=== PATIENT | female | born 1955 | race Caucasian/White ===

== ENCOUNTER 2016-09-12 10:20 | Inpatient (IN) ==
[2016-09-12] MEDS ORDERED: IPRATROPIUM/ALBUTEROL 3 ML AMPUL.NEB NEB ONE (10:27)
[2016-09-12] MEDS ORDERED: 0.9 % SODIUM CHLORIDE 1,000 ML IV ONE (10:41)
[2016-09-12] MEDS ORDERED: AZITHROMYCIN 500 MG in DEXTROSE 5% IN WATER 250 ML IV ONE (10:41)
[2016-09-12] MEDS ORDERED: TERBUTALINE 1 MG/ML VIAL SQ ONE (10:41)
[2016-09-12] MEDS ORDERED: methylPREDNISolone SOD SUCC 125 MG/2 ML VIAL IV ONE (10:41)
[2016-09-12] MEDS ORDERED: ALBUTEROL SULFATE 5 MG/ML NEB SOLUTION BOTTLE NEB ONE (10:43)
--- NOTE | 2016-09-12 11:02 | Emergency Department Note ---
SOB HPI - General Chief Complaint: Shortness of Breath/Dyspnea Stated Complaint: SOB Time Seen by Provider: 09/12/16 10:28 Source: patient Mode of arrival: ambulatory Limitations: no limitations - History of Present Illness 89-year-old female with shortness of breath and upper respiratory symptoms for the last 2 months. She has a appointment with the new province archivist Dr. Blankenship in October but has not seen him yet. The last couple days have been worsening severely culminating with worst symptoms at 4 AM this morning coughing up thick mucus. She has a hoarse voice. Not on home oxygen but she drops into the 80s oxygen saturation with talking. Very fatigued and unable to exert herself even minimally. Some nausea. Afebrile - Related Data Home Medications Medication Instructions Recorded Confirmed Albuterol Sulfate [Ventolin] 2 puff INH Q4HP PRN 09/12/16 09/12/16 Citalopram [Celexa] 20 mg PO DAILY 09/12/16 09/12/16 HYDROcodone/APAP 5/325MG [[place] 1 tab PO Q6HP PRN 09/12/16 09/12/16 5/325Mg] Hydrochlorothiazide [Oretic] 25 mg PO DAILY 09/12/16 09/12/16 Ipratropium/Albuterol Sulfate 1 puff INH Q4H PRN 09/12/16 09/12/16 [Combivent] Losartan [Cozaar] 100 mg PO DAILY 09/12/16 09/12/16 amLODIPine [Norvasc] 5 mg PO ONCE 09/12/16 09/12/16 Allergies Allergy/AdvReac Type Severity Reaction Status Date / Time clonazepam AdvReac Mild excessive Verified 09/12/16 14:24 mucus secretion Review of Systems All systems ED: reviewed and negative except as stated. Past Medical History - Past Medical History Attestation: Yes: The following information was validated with the patient. Medical history: Reports: COPD, hyperlipidemia, hypertension, other (Allergic rhinitis) Surgical history ED: Reports: , hysterectomy, knee replacement - Social History smoking status: Former smoker (3 years ago-smoked from age [age]) Physical Exam Some acute distress from dyspnea, wanting to sit up. Normocephalic atraumatic. Conjunctive are clear sclerae white and nonicteric. No nasal discharge or congestion. Voice is very hoarse with occasional tight productive cough. Oropharynx pink and moist. Neck is supple without lymphadenopathy or thyromegaly. Heart is regular rate and rhythm no murmurs appreciated. Lungs are clear to auscultation mostly with some subtle rales on the left. She does have some respiratory distress though with oxygen saturations decreasing into the 80s with talking. She does have pursed lip breathing as well. This even after one breathing treatment with DuoNeb. Abdomen is soft nontender nondistended. +2 radial pulse. No pedal edema. She does have some acrocyanosis. Alert oriented. No ataxia but she does have some tremulousness after the breathing treatment - General Limitations: no limitations Course Vital Signs Temperature 98.0 F 09/12/16 10:24 Pulse Rate 115 H 09/12/16 10:24 Respiratory Rate 24 H 09/12/16 10:24 Blood Pressure 128/74 09/12/16 10:24 Pulse Oximetry (%) 87 L 09/12/16 10:24 Temperature 97.2 F 09/13/16 04:00 Pulse Rate 98 H 09/13/16 07:19 Respiratory Rate 16 09/13/16 07:19 Blood Pressure 135/67 09/13/16 04:00 Pulse Oximetry (%) 90 09/13/16 07:19 Shortness of Breath/Dyspnea - Lab Data Lab results reviewed: Yes I reviewed the patient's lab results. Result diagrams: 09/13/16 03:57 09/12/16 10:55 Lab Results 09/12/16 09/12/16 09/12/16 Range/Units 10:55 10:55 10:55 WBC 18.9 H (4.5-11.0) K/mcL RBC 4.51 (4.00-5.20) M/mcL Hgb 15.4 H (12.0-15.0) g/dL Hct 46.1 (36.0-48.0) % MCV 102.2 H (80.0-100.0) fL MCH 34.2 H (26.0-34.0) pg MCHC 33.5 (31.0-36.0) g/dL RDW 13.7 (11.5-14.5) % Plt Count 203 (140-440) K/mcL MPV 9.2 (7.4-10.4) fL Gran % 85.5 H (38.0-78.0) % Lymph % (Auto) 8.0 L (15.5-49.0) % Brown % (Auto) 5.7 (1.0-12.0) % Eos % (Auto) 0.6 (0.0-7.0) % Baso % (Auto) 0.2 (0.0-2.0) % Gran # 16.1 H (1.8-8.0) K/mcL Lymph # (Auto) 1.5 (1.5-4.8) K/mcL Brown # (Auto) 1.1 H (0.1-0.9) K/mcL Eos # (Auto) 0.1 (0.0-0.7) K/mcL Baso # (Auto) 0 (0.0-0.3) K/mcL VBG Lactic Acid 1.5 (0.5-2.2) mmol/L Carbon Monoxide Screen 6.4 H (0.0-1.5) % Sodium 137 (133-145) mmol/L Potassium 3.8 (3.3-5.1) mmol/L Chloride 94 L (96-108) mmol/L Carbon Dioxide 25 (22-30) mmol/L Anion Gap 18.0 H (8-16) BUN 16 (6-20) mg/dl Creatinine 0.8 (0.6-1.1) mg/dl GFR Calculation 81 Glucose 112 H (70-105) mg/dL Calcium 9.6 (8.6-10.4) mg/dl Total Bilirubin 1.1 H (0.0-1.0) mg/dL AST 27 (0-37) U/l ALT 26 (0-40) U/l Alkaline Phosphatase 108 (39-117) U/L Troponin T (0-0.03) ng/ml Total Protein 7.6 (5.9-8.4) gm/dL Albumin 4.7 (3.2-5.2) gm/dL Globulin 2.9 (2.2-3.7) gm/dL Albumin/Globulin Ratio 1.6 (1.0-2.3) Procalcitonin (<0.10) ng/mL 09/12/16 09/12/16 Range/Units 10:55 10:55 WBC (4.5-11.0) K/mcL RBC (4.00-5.20) M/mcL Hgb (12.0-15.0) g/dL Hct (36.0-48.0) % MCV (80.0-100.0) fL MCH (26.0-34.0) pg MCHC (31.0-36.0) g/dL RDW (11.5-14.5) % Plt Count (140-440) K/mcL MPV (7.4-10.4) fL Gran % (38.0-78.0) % Lymph % (Auto) (15.5-49.0) % Brown % (Auto) (1.0-12.0) % Eos % (Auto) (0.0-7.0) % Baso % (Auto) (0.0-2.0) % Gran # (1.8-8.0) K/mcL Lymph # (Auto) (1.5-4.8) K/mcL Brown # (Auto) (0.1-0.9) K/mcL Eos # (Auto) (0.0-0.7) K/mcL Baso # (Auto) (0.0-0.3) K/mcL VBG Lactic Acid (0.5-2.2) mmol/L Carbon Monoxide Screen (0.0-1.5) % Sodium (133-145) mmol/L Potassium (3.3-5.1) mmol/L Chloride (96-108) mmol/L Carbon Dioxide (22-30) mmol/L Anion Gap (8-16) BUN (6-20) mg/dl Creatinine (0.6-1.1) mg/dl GFR Calculation Glucose (70-105) mg/dL Calcium (8.6-10.4) mg/dl Total Bilirubin (0.0-1.0) mg/dL AST (0-37) U/l ALT (0-40) U/l Alkaline Phosphatase (39-117) U/L Troponin T < 0.01 (0-0.03) ng/ml Total Protein (5.9-8.4) gm/dL Albumin (3.2-5.2) gm/dL Globulin (2.2-3.7) gm/dL Albumin/Globulin Ratio (1.0-2.3) Procalcitonin 0.05 (<0.10) ng/mL Arterial blood gas showed pH is 7.46 PCO2 43 PO2 57 - Radiology Data Radiology results reviewed: Yes I reviewed the patient's radiology results. Chest x-ray 2 views does not show any acute cardiopulmonary problem - EKG Data EKG attestation: Yes I reviewed and interpreted this EKG. EKG results narrative: Rate of 101 left axis shift no evidence of ischemia and normal sinus rhythm Disposition Pt seen by CASTING ROOM HELPER/PA only: No (MD only) Clinical Impression: Acute exacerbation of chronic obstructive airways disease Summary: Found to be having COPD exacerbation-initially given breathing treatment with DuoNeb and started on oxygen to bring saturations to normal levels. Additionally gave 10 mg albuterol heart neb over 1 hour but she continued to require oxygen Discussed case with Dr. Johnston the hospitalist who agreed to accept patient for hospital care of COPD exacerbation Disposition: Xfer Acute Care Hospital Condition: Fair
[2016-09-12 11:26] LABS: Basophils # (Auto) 0 K/mcL (0.0-0.3); Basophils % (Auto) 0.2 % (0.0-2.0); Eosinophils # (Auto) 0.1 K/mcL (0.0-0.7); Eosinophils % (Auto) 0.6 % (0.0-7.0); Granulocytes % (Auto) 85.5 % (38.0-78.0); Lymphocytes # (Auto) 1.5 K/mcL (1.5-4.8); Mean Cell Volume 102.2 fL (80.0-100.0); Mean Corpuscular HGB Conc 33.5 g/dL (31.0-36.0); Mean Corpuscular Hemoglobin 34.2 pg (26.0-34.0); Monocytes # (Auto) 1.1 K/mcL (0.1-0.9); Monocytes % (Auto) 5.7 % (1.0-12.0); Platelet Count 203 K/mcL (140-440); RBC 4.51 M/mcL (4.00-5.20); Red Cell Distribution Width 13.7 % (11.5-14.5)
--- NOTE | 2016-09-12 11:26 | XRay Report ---
CLINICAL INFORMATION: Dyspnea TECHNIQUE: Upright PA and lateral chest x-ray COMPARISON: 03/28/2014 and 05/25/2013 FINDINGS: Lungs are negative. No acute or focal pulmonary parenchymal infiltrate. No parenchymal mass. Heart size and vascularity are normal. No pulmonary edema. No pulmonary congestion. [place] and mediastinum are negative. No pleural fluid. Incidental note is made of nonacute right-sided rib fractures IMPRESSION: Negative PA and lateral chest x-ray Interpreted and Authenticated by: Maxim Cueto 09/12/16
[2016-09-12 11:51] LABS: ALT/SGPT 26 U/l (0-40); Albumin 4.7 gm/dL (3.2-5.2); Albumin/Globulin Ratio 1.6 (1.0-2.3); Alkaline Phosphatase 108 U/L (39-117); Blood Urea Nitrogen 16 mg/dl (6-20)
[2016-09-12] MEDS ORDERED: NALOXONE HCL 0.4 MG/ML VIAL IV PRN (14:18)
[2016-09-12] MEDS ORDERED: ACETAMINOPHEN 325 MG TABLET PO PRN (14:18)
[2016-09-12] MEDS ORDERED: ONDANSETRON 4 MG/2 ML VIAL IV PRN (14:18)
[2016-09-12] MEDS: 0.9 % SODIUM CHLORIDE 1,000 ML IV SCH (14:44)
[2016-09-12] MEDS: THIAMINE 100 MG TABLET PO SCH (14:45)
[2016-09-12] MEDS: methylPREDNISolone SOD SUCC 125 MG/2 ML VIAL IV SCH ×2 (14:47→21:38)
[2016-09-12] MEDS: IPRATROPIUM/ALBUTEROL 3 ML AMPUL.NEB NEB SCH ×3 (15:40→22:38)
[2016-09-12] MEDS: HYDROcodone/APAP 5/325MG TABLET PO PRN ×2 (17:30→22:11)
--- NOTE | 2016-09-12 18:03 | Internal Med History&Physical ---
Medical - H&P: HPI Patient information: Note initiated : 09/12/16 at 5:59 pm Service Date, if different from initiated Date: [] Patient: Destiny Begum a 61 y/o F admitted on 09/12/16 for Shortness of breath. Chief Complaint: [] History of present illness: Ms. Begum is a 61 year old Female with h/o copd who presents to the ER with complains of shortness of breath and cough which has been going on and off for the last 2 months. Over the last 2 days the patient's symptoms worsened considerably and therefore she presented to the ED. the patient notes that she has been having cough, going on for 2 months associated with shortness of breath. She has a history of COPD. The patient note she has tried antibiotics for same with partial relief. As time around for the last 2 days she has been having shortness of breath with exertion worse with activity better with rest, associated with chest tightness, cough, greenish phlegm, no hemoptysis, no chest pain. Patient therefore presented to the ED. She notes that in the past she was having similar symptoms at which time she was admitted to the ICU for COPD exacerbation. In the emergency room the patient underwent labs and investigations which revealed an elevated WBC count, a negative chest x-ray The patient has no urinary symptoms, the patient was given duo nebs, terbutaline,IV steroids, and azithromycin, she was hypoxic at 87% on room air. She was admitted to the hospital with a diagnosis of acute COPD exacerbation. All systems: reviewed and no additional remarkable complaints except as stated ( as per HPI) Medical - H&P: PMH Medical history: Medical History (Last Updated 09/12/16 @ 18:03 by Sander Johnston MD) Laceration (Acute) COPD (chronic obstructive pulmonary disease) (Chronic) Knee pain (Resolved 05/18/14) Hypertension, essential (Chronic) Hyperlipemia (Chronic 06/03/12) Depression (Chronic) Bronchitis, acute (Chronic) Allergic rhinitis (Chronic) Fracture of toe, closed (Resolved) Surgical history: Past Surgical History (Last Updated 07/11/16 @ 14:23 by [employer] PA) History of (Resolved) History of hysterectomy (Resolved) History of knee replacement procedure of right knee (Resolved) History of oophorectomy (Resolved) Pertinent family history: Family History Unknown Blood disorder Neurological disorder Grandmother (paternal) Malignant neoplasm of breast Father Postnecrotic cirrhosis of liver due to alcoholism Depression Malignant neoplasm of liver Osteoarthritis Mother Hyperlipidemia Essential hypertension Disorder of thyroid Medical - H&P: Meds Home Medications Medication Instructions Recorded Confirmed Type Albuterol Sulfate [Ventolin] 2 puff INH Q4HP PRN 09/12/16 09/12/16 History Citalopram [Celexa] 20 mg PO DAILY 09/12/16 09/12/16 History HYDROcodone/APAP 5/325MG [[place] 1 tab PO Q6HP PRN 09/12/16 09/12/16 History 5/325Mg] Hydrochlorothiazide [Oretic] 25 mg PO DAILY 09/12/16 09/12/16 History Ipratropium/Albuterol Sulfate 1 puff INH Q4H PRN 09/12/16 09/12/16 History [Combivent] Losartan [Cozaar] 100 mg PO DAILY 09/12/16 09/12/16 History amLODIPine [Norvasc] 5 mg PO ONCE 09/12/16 09/12/16 History Allergies Allergy/AdvReac Type Severity Reaction Status Date / Time clonazepam AdvReac Mild excessive Verified 09/12/16 14:24 mucus secretion Medical - H&P: Exam - Constitutional Vitals: Temp Pulse Resp BP Pulse Ox 97.1 F 94 H 22 127/73 91 09/12/16 16:30 09/12/16 16:30 09/12/16 16:30 09/12/16 16:30 09/12/16 16:30 Exam: GENERAL: The patient is a well-developed, well-nourished in no apparent distress. Is alert and oriented x3. VITAL SIGNS: Reviewed and as noted elsewhere. HEENT: Head is normocephalic and atraumatic. Extraocular muscles are intact. Pupils are equal, round, and reactive to light. Nares appeared normal. Mouth appears any without lesions. Mucous membranes are moist. NECK: Normal to inspection, Supple, No lymphadenopathy or thyromegaly. LUNGS: Air entry equal on both sides, prolonged exp present, myke wheezing present , NO crackles or rhonchi noted. No accessory muscles of respiration HEART: Regular rate and rhythm normal, S1 and S2 heard, no Gallop, S3 or Rub Noted, No Gross murmur heard. ABDOMEN: Soft, nontender, and nondistended. Positive bowel sounds. No hepatosplenomegaly was noted. EXTREMITIES: No cyanosis, clubbing, rash, lesions or edema. NEUROLOGIC: Cranial nerves II through XII are grossly intact. Motor and Sensory System Grossly Intact PSYCHIATRIC: Normal affect, Normal Mood. Appropriate Behavior. SKIN: No ulceration or wounds noted, No jaundice, No rash noted. Medical - H&P: Reslt - Labs CBC & Chem 7: 09/12/16 10:55 09/12/16 10:55 Medical - H&P: A/P - Narrative A/P Narrative: A/P Acute copd exacerbation: Treat with zithromax, steroids, dunebs. CXR neg for pna. monitor Acute bronchitis: treat as above, likely the source of elevated wbc count. Acute hypoxic resp failure: 87 % on RA, treat with oxygen via NC, Chr pain: Continue home meds, takes hydrococodone for chr pain. DVT prophylaxis Hep sq Diet regular Full Code. Social History - Tobacco smoking status: Former smoker - Alcohol alcohol intake frequency: 2+ drinks per day
[2016-09-12] MEDS: HEPARIN 5,000 UNIT/ML VIAL SQ SCH (21:38)
[2016-09-13] MEDS: 0.9 % SODIUM CHLORIDE 1,000 ML IV SCH (01:10)
[2016-09-13] MEDS: IPRATROPIUM/ALBUTEROL 3 ML AMPUL.NEB NEB SCH ×6 (03:14→22:47)
[2016-09-13] MEDS: methylPREDNISolone SOD SUCC 125 MG/2 ML VIAL IV SCH ×3 (06:01→21:24)
[2016-09-13 06:21] LABS: Basophils # (Auto) 0 K/mcL (0.0-0.3); Basophils % (Auto) 0 % (0.0-2.0); Eosinophils # (Auto) 0 K/mcL (0.0-0.7); Eosinophils % (Auto) 0 % (0.0-7.0); Granulocytes % (Auto) 95.8 % (38.0-78.0); Lymphocytes # (Auto) 0.5 K/mcL (1.5-4.8); Lymphocytes % (Auto) 3.1 % (15.5-49.0); Mean Cell Volume 103.1 fL (80.0-100.0); Mean Corpuscular HGB Conc 33.4 g/dL (31.0-36.0); Mean Corpuscular Hemoglobin 34.5 pg (26.0-34.0); Monocytes # (Auto) 0.2 K/mcL (0.1-0.9); Monocytes % (Auto) 1.1 % (1.0-12.0); Platelet Count 157 K/mcL (140-440); RBC 4.19 M/mcL (4.00-5.20); Red Cell Distribution Width 13.6 % (11.5-14.5)
[2016-09-13] MEDS: HYDROcodone/APAP 5/325MG TABLET PO PRN ×3 (07:04→19:12)
[2016-09-13] MEDS: MULTIVIT,THER IRON,CA,FA & MIN 1 TABLET PO SCH ×3 (09:46→13:44)
[2016-09-13] MEDS: HEPARIN 5,000 UNIT/ML VIAL SQ SCH ×2 (09:47→21:24)
[2016-09-13] MEDS: CITALOPRAM 20 MG TABLET PO SCH (09:47)
[2016-09-13] MEDS: LOSARTAN 50 MG TABLET PO SCH (09:47)
[2016-09-13] MEDS: AZITHROMYCIN 250 MG TABLET PO SCH (09:47)
[2016-09-13] MEDS: amLODIPine 5 MG TABLET PO SCH (09:47)
[2016-09-13] MEDS: HYDROCHLOROTHIAZIDE 25 MG TABLET PO SCH (09:47)
[2016-09-13] MEDS: THIAMINE 100 MG TABLET PO SCH (09:48)
[2016-09-13] MEDS ORDERED: PNEUMOCOCCAL 23-VAL P-SAC VAC 0.5 ML VIAL IM ONE (10:00)
[2016-09-13 13:07] LABS: ALT/SGPT 28 U/l (0-40); Albumin 4.7 gm/dL (3.2-5.2); Albumin/Globulin Ratio 1.6 (1.0-2.3); Alkaline Phosphatase 98 U/L (39-117); Bilirubin,Direct < 0.2 mg/dL (0.0-0.3); Blood Urea Nitrogen 18 mg/dl (6-20); Gamma Glutamyl Transpeptidase 41 U/L (5-36)
--- NOTE | 2016-09-13 14:31 | Internal Med Progress Note ---
Medical - PN: Subj Patient information: Note initiated : 09/13/16 at 2:26 pm Service Date, if different from initiated Date: [] Patient: Destiny Begum a 61 y/o F admitted on 09/12/16 for Shortness of Breath/ COPD Exacerbation. Chief Complaint: [] Interval history: Ms. Begum is a 61 year old Female with h/o copd who presents to the ER with complains of shortness of breath and cough which has been going on and off for the last 2 months. Over the last 2 days the patient's symptoms worsened considerably and therefore she presented to the ED. the patient notes that she has been having cough, going on for 2 months associated with shortness of breath. She has a history of COPD. The patient note she has tried antibiotics for same with partial relief. As time around for the last 2 days she has been having shortness of breath with exertion worse with activity better with rest, associated with chest tightness, cough, greenish phlegm, no hemoptysis, no chest pain. Patient therefore presented to the ED. She notes that in the past she was having similar symptoms at which time she was admitted to the ICU for COPD exacerbation. In the emergency room the patient underwent labs and investigations which revealed an elevated WBC count, a negative chest x-ray The patient has no urinary symptoms, the patient was given duo nebs, terbutaline,IV steroids, and azithromycin, she was hypoxic at 87% on room air. She was admitted to the hospital with a diagnosis of acute COPD exacerbation. September 13: patient seen examined, no acute overnight issues, pt notes she had some anxiety at night, with the use of steroids, so she could not sleep well, would like something to calm her down, will use trazodone 50 qhs while she is inpatient. Her shortness of breath,cough is improving. WBC trending down, procalcitonin is neg. Plan to continue present treatment. Pertinent ROS: Denies headache, dizziness Denies chest pain, palpitation Improving cough and shortness of breath Denies abdominal pain, nausea or vomiting. - Constitutional Vitals: Vital Signs Temp Pulse Resp BP Pulse Ox 98.1 F 92 H 16 170/100 92 09/13/16 08:00 09/13/16 11:14 09/13/16 11:14 09/13/16 08:00 09/13/16 08:00 Period Temp Pulse Resp BP Sys/Denney Pulse Ox Last 24 Hr 97.1 F-98.1 F 92-126 16-24 127-170/67-100 90-93 Intake and Output 09/13/16 09/13/16 09/13/16 05:59 13:59 21:59 Intake Total 1500 / 1500 1290 / 1290 Output Total 1200 / 1200 300 / 300 Balance 300 / 300 990 / 990 Weight 181 lb Patient Weight 09/14/16 05:59 Weight 181 lb Intake & Output: Intake & Output 09/13/16 09/13/16 09/13/16 05:59 13:59 21:59 Intake Total 1500 / 1500 1290 / 1290 Output Total 1200 / 1200 300 / 300 Balance 300 / 300 990 / 990 Weight 181 lb Intake: IV 1000 / 1000 890 / 890 Sodium Chloride 0.9% 1, 1000 / 1000 890 / 890 000 ml @ 100 mls/hr IV . Q10H ADRIANA Rx#:[id number] Oral 500 / 500 400 / 400 Output: Void Amount 1200 / 1200 300 / 300 Other: Meal Lunch Percent of Meal Consumed 50% Feeding Ability Assist with Tray Set Up Exam: Constitutional; Afebrile, cooperative, alert, not in distress. Eyes- No icterus, , No periorbital swelling Ears- Ext ear normal, hearing normal to conversation. Neck- Midline trachea, supple Respiratory system: Air Entry equal on both sides, No crackles , myke wheezing present, prolonged exp phase. CVS- Rate rhythm regular, S1,S2 heard, no gallop, no rub. Abdomen- Soft nontender abdomen, no organomegaly, no tenderness, no guarding or rigidity, OBSTETRICIAN GYNECOLOGIST- AOOx3, moving all extremities, no gross focal deficit noted. Medical - PN: Obj Da - Labs CBC & Chem 7: 09/13/16 03:57 09/13/16 12:08 Labs: Abnormal Lab Results 09/13/16 09/13/16 12:08 03:57 WBC 15.8 H MCV 103.1 H MCH 34.5 H Gran % 95.8 H Lymph % (Auto) 3.1 L Gran # 15.1 H Lymph # (Auto) 0.5 L Glucose 160 H Phosphorus 1.6 L GGT 41 H Meds: Medications Acetaminophen (Tylenol) 650 mg PO Q6HP PRN PRN Reason: PAIN/FEVER > 101 Hydrocodone Bitart/Acetaminophen ([place] 5/325mg) 1 tab PO Q4HP PRN PRN Reason: Pain Last Admin: 09/13/16 13:34 Dose: 1 tab Albuterol/Ipratropium (Duoneb) 3 ml NEB Q4HRT [facility] Last Admin: 09/13/16 11:12 Dose: 3 ml Amlodipine Besylate (Norvasc) 5 mg PO DAILY [facility] Last Admin: 09/13/16 09:47 Dose: 5 mg Azithromycin (Zithromax) 250 mg PO DAILY [facility] Stop: 09/16/16 09:01 Last Admin: 09/13/16 09:47 Dose: 250 mg Citalopram Hydrobromide (Celexa) 20 mg PO DAILY [facility] Last Admin: 09/13/16 09:47 Dose: 20 mg Heparin Sodium (Porcine) (Heparin) 5,000 unit SQ Q12 [facility] Last Admin: 09/13/16 09:47 Dose: 5,000 unit Hydrochlorothiazide (Oretic) 25 mg PO DAILY [facility] Last Admin: 09/13/16 09:47 Dose: 25 mg Iron Carb/Multivit/[place]/Folic Acid (Multivitamin W/Minerals) 1 tab PO DAILY [facility] Last Admin: 09/13/16 13:44 Dose: Not Given Losartan Potassium (Cozaar) 100 mg PO DAILY [facility] Last Admin: 09/13/16 09:47 Dose: 100 mg Methylprednisolone Sodium Succinate (Solu-Medrol) 62.5 mg IV Q8 [facility] Last Admin: 09/13/16 13:35 Dose: 62.5 mg Naloxone HCl (Narcan) 0.1 mg IV Q2MIN PRN PRN Reason: Opiate Reversal Ondansetron HCl (Zofran) 4 mg IV Q4HP PRN PRN Reason: Nausea And Vomiting Thiamine HCl (Vitamin B1) 100 mg PO DAILY [facility] Last Admin: 09/13/16 09:48 Dose: 100 mg Medical - PN: A/P - Time Spent With Patient Total time spent is greater than 50% in coordination of care (as documented) at patient's floor/unit and/or counseling patient: - Narrative A/P Narrative: A/P Acute copd exacerbation: Treat with zithromax, steroids, dunebs. CXR neg for pna. Pt improving, continue same. Acute bronchitis: treat as above, likely the source of elevated wbc count. CXR is neg, procalcitonin is neg, clinically improving. Acute hypoxic resp failure: 87 % on RA, treat with oxygen via NC, presently on 2 L via nasal canula Chr pain: Continue home meds, takes hydrococodone for chr pain. steroid induced anxiety: trazodone qhs. DVT prophylaxis Hep sq Diet regular Full Code.
[2016-09-13] MEDS ORDERED: POTASSIUM CHLORIDE 20 MEQ TABLET PO ONE (15:33)
[2016-09-13] MEDS: NEUTRA PHOS 1 PACKET PO SCH (21:25)
[2016-09-13] MEDS: traZODone HCL 50 MG TABLET PO SCH (21:30)
[2016-09-14] MEDS: HYDROcodone/APAP 5/325MG TABLET PO PRN ×5 (02:28→21:03)
[2016-09-14] MEDS: IPRATROPIUM/ALBUTEROL 3 ML AMPUL.NEB NEB SCH ×6 (02:28→23:36)
[2016-09-14 05:45] LABS: Basophils # (Auto) 0 K/mcL (0.0-0.3); Basophils % (Auto) 0 % (0.0-2.0); Eosinophils # (Auto) 0 K/mcL (0.0-0.7); Eosinophils % (Auto) 0 % (0.0-7.0); Granulocytes % (Auto) 94.2 % (38.0-78.0); Lymphocytes # (Auto) 0.6 K/mcL (1.5-4.8); Lymphocytes % (Auto) 3.1 % (15.5-49.0); Mean Cell Volume 103.7 fL (80.0-100.0); Mean Corpuscular HGB Conc 33.7 g/dL (31.0-36.0); Mean Corpuscular Hemoglobin 34.9 pg (26.0-34.0); Monocytes # (Auto) 0.5 K/mcL (0.1-0.9); Monocytes % (Auto) 2.7 % (1.0-12.0); Platelet Count 169 K/mcL (140-440); RBC 4.01 M/mcL (4.00-5.20); Red Cell Distribution Width 13.8 % (11.5-14.5)
[2016-09-14] MEDS: methylPREDNISolone SOD SUCC 125 MG/2 ML VIAL IV SCH ×2 (05:55→07:44)
[2016-09-14 06:16] LABS: ALT/SGPT 59 U/l (0-40); Albumin 4.3 gm/dL (3.2-5.2); Albumin/Globulin Ratio 1.7 (1.0-2.3); Alkaline Phosphatase 108 U/L (39-117); Bilirubin,Direct < 0.2 mg/dL (0.0-0.3); Blood Urea Nitrogen 21 mg/dl (6-20); Gamma Glutamyl Transpeptidase 80 U/L (5-36); Magnesium 2.2 mg/dL (1.6-2.5); Uric Acid 3.6 mg/dL (2.5-8.0)
--- NOTE | 2016-09-14 06:43 | Internal Med Progress Note ---
Medical - PN: Subj Patient information: Note initiated : 09/14/16 at 6:34 am Service Date, if different from initiated Date: [] Patient: Destiny Begum a 61 y/o F admitted on 09/12/16 for Shortness of Breath/ COPD Exacerbation. Chief Complaint: SOB Interval history: Ms. Begum is a 61 year old Female with h/o copd who presents to the ER with complains of shortness of breath and cough which has been going on and off for the last 2 months. For 2 days prior to admission, the patient's symptoms worsened considerably and therefore she presented to the ED. She has been having cough, going on for 2 months associated with shortness of breath. She has a history of COPD. She has tried antibiotics for same with partial relief. Her shortness of breath is worse with exertion and better with rest, associated with chest tightness, cough, greenish phlegm, no hemoptysis, no chest pain. Patient therefore presented to the ED. She notes that in the past she was having similar symptoms at which time she was admitted to the ICU for COPD exacerbation. In the emergency room the patient underwent labs and investigations which revealed an elevated WBC count, a negative chest x-ray The patient has no urinary symptoms, the patient was given duo nebs, terbutaline,IV steroids, and azithromycin, she was hypoxic at 87% on room air. She was admitted to the hospital with a diagnosis of acute COPD exacerbation. September 13: patient seen examined, no acute overnight issues, pt notes she had some anxiety at night, with the use of steroids, so she could not sleep well, would like something to calm her down, will use trazodone 50 qhs while she is inpatient. Her shortness of breath,cough is improving. WBC trending down, procalcitonin is neg. Plan to continue present treatment. September 14: She was doing well until early this AM when she had acute SOB while walking back from bathroom. Breathing much easier after coughing up lots of crandall sputum. She remains hoarse. She didn't try the trazodone last night because she is afraid she would be too sleepy to know if she had breathing trouble. Labs yesterday showed hypoK and hypoPhos. Both were replaced and are improved today. WBC is back up to 18. LFTs are mildly elevated. Worked with PT yesterday and mobilized well but had decreased endurance d/t SOB. She lost her IV site overnight and has a hematoma on the back of her hand. Changed to prednisone. Pertinent ROS: no fever or cp - Constitutional Vitals: Vital Signs Temp Pulse Resp BP Pulse Ox 98.1 F 88 24 H 154/74 92 09/14/16 04:00 09/14/16 04:00 09/14/16 04:00 09/14/16 04:00 09/14/16 04:00 Period Temp Pulse Resp BP Sys/Denney Pulse Ox Last 24 Hr 97.6 F-98.6 F 88-126 16-24 137-170/74-100 90-92 Intake and Output 09/13/16 09/14/16 09/14/16 21:59 05:59 13:59 Intake Total 2210 / 2210 240 / 240 Output Total 600 / 600 1100 / 1100 Balance 1610 / 1610 -860 / -860 Weight 182 lb 4.8 oz Intake & Output: Intake & Output 09/13/16 09/14/16 09/14/16 21:59 05:59 13:59 Intake Total 2210 / 2210 240 / 240 Output Total 600 / 600 1100 / 1100 Balance 1610 / 1610 -860 / -860 Weight 182 lb 4.8 oz Intake: Oral 2210 / 2210 240 / 240 Output: Void Amount 600 / 600 1100 / 1100 - Respiratory Respiratory exam: Present: normal respiratory exam, CTAB - Cardiovascular Additional comments: mild tachycardia. no murmur - GI/Abdominal GI/Abdominal exam: Present: normal bowel sounds, soft. Absent: tenderness - Neurological Exam Neurological exam: Present: alert, CN II-XII intact, oriented X3 - Psychiatric Psychiatric exam: Present: anxious - Skin Additional comments: hematoma covering most of dorsum of R hand Medical - PN: Obj Da - Labs CBC & Chem 7: 09/14/16 04:32 09/14/16 04:32 Labs: Abnormal Lab Results 09/14/16 09/14/16 09/13/16 04:32 04:32 12:08 WBC 18.0 H MCV 103.7 H MCH 34.9 H Gran % 94.2 H Lymph % (Auto) 3.1 L Gran # 17.0 H Lymph # (Auto) 0.6 L BUN 21 H Glucose 168 H 160 H Phosphorus 1.6 L GGT 80 H 41 H AST 62 H ALT 59 H Lactate Dehydrogenase 289 H 09/13/16 03:57 WBC 15.8 H MCV 103.1 H MCH 34.5 H Gran % 95.8 H Lymph % (Auto) 3.1 L Gran # 15.1 H Lymph # (Auto) 0.5 L BUN Glucose Phosphorus GGT AST ALT Lactate Dehydrogenase Meds: Medications Acetaminophen (Tylenol) 650 mg PO Q6HP PRN PRN Reason: PAIN/FEVER > 101 Hydrocodone Bitart/Acetaminophen ([place] 5/325mg) 1 tab PO Q4HP PRN PRN Reason: Pain Last Admin: 09/14/16 02:28 Dose: 1 tab Albuterol/Ipratropium (Duoneb) 3 ml NEB Q4HRT [facility] Last Admin: 09/14/16 02:28 Dose: 3 ml Amlodipine Besylate (Norvasc) 5 mg PO DAILY [facility] Last Admin: 09/13/16 09:47 Dose: 5 mg Azithromycin (Zithromax) 250 mg PO DAILY [facility] Stop: 09/16/16 09:01 Last Admin: 09/13/16 09:47 Dose: 250 mg Citalopram Hydrobromide (Celexa) 20 mg PO DAILY [facility] Last Admin: 09/13/16 09:47 Dose: 20 mg Heparin Sodium (Porcine) (Heparin) 5,000 unit SQ Q12 [facility] Last Admin: 09/13/16 21:24 Dose: 5,000 unit Hydrochlorothiazide (Oretic) 25 mg PO DAILY [facility] Last Admin: 09/13/16 09:47 Dose: 25 mg Iron Carb/Multivit/[employer] Super[employer]/Folic Acid (Multivitamin W/Minerals) 1 tab PO DAILY [facility] Last Admin: 09/13/16 13:44 Dose: Not Given Losartan Potassium (Cozaar) 100 mg PO DAILY [facility] Last Admin: 09/13/16 09:47 Dose: 100 mg Methylprednisolone Sodium Succinate (Solu-Medrol) 62.5 mg IV Q8 [facility] Last Admin: 09/13/16 21:24 Dose: 62.5 mg Naloxone HCl (Narcan) 0.1 mg IV Q2MIN PRN PRN Reason: Opiate Reversal Ondansetron HCl (Zofran) 4 mg IV Q4HP PRN PRN Reason: Nausea And Vomiting Potassium/Phosphorus/Sodium (Neutra Phos) 1 packet PO TID [facility] Last Admin: 09/13/16 21:25 Dose: 1 packet Thiamine HCl (Vitamin B1) 100 mg PO DAILY [facility] Last Admin: 09/13/16 09:48 Dose: 100 mg Trazodone HCl (Desyrel) 50 mg PO HS [facility] Last Admin: 09/13/16 21:30 Dose: Not Given Medical - PN: A/P - Time Spent With Patient Total time spent is greater than 50% in coordination of care (as documented) at patient's floor/unit and/or counseling patient: Greater than 35 minutes - Narrative A/P Narrative: A/P Acute copd exacerbation: Treat with zithromax, steroids, dunebs. CXR neg for pna. Pt improving, continue same. Increasing WBC may reflect demargination. If worsens, consider CXR tomorrow. She has no bronchospasm on exam and has no IV site; will change to high-dose prednisone and taper as able. Acute bronchitis: treat as above, likely the source of elevated wbc count. CXR is neg, procalcitonin is neg, clinically improving. Acute hypoxic resp failure: 87 % on RA, treat with oxygen via NC, presently on 2 L via nasal canula. She has a concentrator at home and feels comfortable if she had to DC on temporary O2 supplementation. Chronic pain: Continue home meds, takes hydrocodone for chr pain. steroid induced anxiety: Will keep trazodone qhs available. hypokalemia--likely 2/2 hctz. Replaced. Will monitor hypophosphatemia--possibly r/t diuretic use and hypoK. On po replacement. cont to monitor DVT prophylaxis Hep sq Diet regular Full Code. ADOD: Change to inpatient today. If improving tomorrow, consider DC home +/- home oxygen.
[2016-09-14] MEDS: amLODIPine 5 MG TABLET PO SCH (09:10)
[2016-09-14] MEDS: CITALOPRAM 20 MG TABLET PO SCH (09:10)
[2016-09-14] MEDS: MULTIVIT,THER IRON,CA,FA & MIN 1 TABLET PO SCH (09:10)
[2016-09-14] MEDS: THIAMINE 100 MG TABLET PO SCH (09:10)
[2016-09-14] MEDS: AZITHROMYCIN 250 MG TABLET PO SCH (09:10)
[2016-09-14] MEDS: HYDROCHLOROTHIAZIDE 25 MG TABLET PO SCH (09:10)
[2016-09-14] MEDS: NEUTRA PHOS 1 PACKET PO SCH ×3 (09:10→21:02)
[2016-09-14] MEDS: LOSARTAN 50 MG TABLET PO SCH (09:10)
[2016-09-14] MEDS: HEPARIN 5,000 UNIT/ML VIAL SQ SCH ×2 (09:10→21:03)
[2016-09-14] MEDS: predniSONE 20 MG TABLET PO SCH (10:36)
[2016-09-14] MEDS: traZODone HCL 50 MG TABLET PO SCH (21:04)
[2016-09-15] MEDS: HYDROcodone/APAP 5/325MG TABLET PO PRN ×5 (01:40→23:19)
[2016-09-15] MEDS: IPRATROPIUM/ALBUTEROL 3 ML AMPUL.NEB NEB SCH ×6 (03:21→23:06)
[2016-09-15] MEDS ORDERED: LORazepam 0.5 MG TABLET PO ONE (04:34)
[2016-09-15] MEDS ORDERED: LORazepam 0.5 MG TABLET ONE (04:42)
[2016-09-15 06:11] LABS: Basophils # (Auto) 0 K/mcL (0.0-0.3); Basophils % (Auto) 0.1 % (0.0-2.0); Eosinophils # (Auto) 0 K/mcL (0.0-0.7); Eosinophils % (Auto) 0 % (0.0-7.0); Granulocytes % (Auto) 80.5 % (38.0-78.0); Lymphocytes # (Auto) 1.9 K/mcL (1.5-4.8); Lymphocytes % (Auto) 11.4 % (15.5-49.0); Mean Cell Volume 104.2 fL (80.0-100.0); Mean Corpuscular HGB Conc 33.2 g/dL (31.0-36.0); Mean Corpuscular Hemoglobin 34.6 pg (26.0-34.0); Monocytes # (Auto) 1.4 K/mcL (0.1-0.9); Platelet Count 211 K/mcL (140-440); RBC 4.27 M/mcL (4.00-5.20); Red Cell Distribution Width 13.2 % (11.5-14.5)
--- NOTE | 2016-09-15 06:44 | Internal Med Progress Note ---
Medical - PN: Subj Patient information: Note initiated : 09/15/16 at 6:42 am Service Date, if different from initiated Date: [] Patient: Destiny Begum a 61 y/o F admitted on 09/14/16 for Shortness of Breath/ COPD Exacerbation. Chief Complaint: copd exacerbation Interval history: Ms. Begum is a 61 year old Female with h/o copd who presents to the ER with complains of shortness of breath and cough which has been going on and off for the last 2 months. For 2 days prior to admission, the patient's symptoms worsened considerably and therefore she presented to the ED. She has been having cough, going on for 2 months associated with shortness of breath. She has a history of COPD. She has tried antibiotics for same with partial relief. Her shortness of breath is worse with exertion and better with rest, associated with chest tightness, cough, greenish phlegm, no hemoptysis, no chest pain. Patient therefore presented to the ED. She notes that in the past she was having similar symptoms at which time she was admitted to the ICU for COPD exacerbation. In the emergency room the patient underwent labs and investigations which revealed an elevated WBC count, a negative chest x-ray The patient has no urinary symptoms, the patient was given duo nebs, terbutaline,IV steroids, and azithromycin, she was hypoxic at 87% on room air. She was admitted to the hospital with a diagnosis of acute COPD exacerbation. September 13: patient seen examined, no acute overnight issues, pt notes she had some anxiety at night, with the use of steroids, so she could not sleep well, would like something to calm her down, will use trazodone 50 qhs while she is inpatient. Her shortness of breath,cough is improving. WBC trending down, procalcitonin is neg. Plan to continue present treatment. September 14: She was doing well until early this AM when she had acute SOB while walking back from bathroom. Breathing much easier after coughing up lots of crandall sputum. She remains hoarse. She didn't try the trazodone last night because she is afraid she would be too sleepy to know if she had breathing trouble. Labs yesterday showed hypoK and hypoPhos. Both were replaced and are improved today. WBC is back up to 18. LFTs are mildly elevated. Worked with PT yesterday and mobilized well but had decreased endurance d/t SOB. She lost her IV site overnight and has a hematoma on the back of her hand. Changed to prednisone. September 15: Again had episode of a/c SOB in early AM hours while walking back from bathroom. RN called me and Ativan was given with good effect. WBC again trending down. No fevers. She was previously on Prilosec but hasn't been taking ; her nocturnal sx may be related to reflux but it has been 4-5 days since her last drink and I d/w pt whether EtOH WD may be causing sx. Desaturated to 87% on 3L today while ambulating. Breathing is much better after she coughs up phlegm but she has a difficult time since phlegm is thick. Pertinent ROS: no fevers or nausea - Constitutional Vitals: Vital Signs Temp Pulse Resp BP Pulse Ox 98.1 F 86 24 H 148/81 96 09/15/16 06:17 09/14/16 23:42 09/15/16 06:17 09/15/16 06:17 09/15/16 06:17 Period Temp Pulse Resp BP Sys/Denney Pulse Ox Last 24 Hr 97.9 F-98.5 F 86-128 12-28 148-167/68-95 91-98 Intake and Output 09/14/16 09/15/16 09/15/16 21:59 05:59 13:59 Intake Total 880 / 880 340 / 340 Output Total 250 / 250 Balance 630 / 630 340 / 340 Weight 182 lb 4.8 oz Intake & Output: Intake & Output 09/14/16 09/15/16 09/15/16 21:59 05:59 13:59 Intake Total 880 / 880 340 / 340 Output Total 250 / 250 Balance 630 / 630 340 / 340 Weight 182 lb 4.8 oz Intake: Oral 880 / 880 340 / 340 Output: Void Amount 250 / 250 Other: Meal Dinner Percent of Meal Consumed 75% # Voids 1 1 General appearance: no acute distress - ENT Additional comments: hoarse - Respiratory Respiratory exam: Present: normal respiratory exam, CTAB. Absent: accessory muscle use - Cardiovascular Cardiovascular exam: Present: tachycardia Additional comments: regular. No murmurs. - GI/Abdominal GI/Abdominal exam: Present: normal bowel sounds, soft - Extremities Exam Extremities exam: Present: neurovascular intact. Absent: pedal edema - Neurological Exam Neurological exam: Present: alert, CN II-XII intact, oriented X3 - Psychiatric Psychiatric exam: Present: anxious Medical - PN: Obj Da - Labs CBC & Chem 7: 09/15/16 04:20 09/15/16 04:20 Labs: Abnormal Lab Results 09/15/16 04:20 WBC 16.9 H MCV 104.2 H MCH 34.6 H Gran % 80.5 H Lymph % (Auto) 11.4 L Gran # 13.6 H [place] # (Auto) 1.4 H Meds: Medications Acetaminophen (Tylenol) 650 mg PO Q6HP PRN PRN Reason: PAIN/FEVER > 101 Hydrocodone Bitart/Acetaminophen ([place] 5/325mg) 1 tab PO Q4HP PRN PRN Reason: Pain Last Admin: 09/15/16 01:40 Dose: 1 tab Albuterol/Ipratropium (Duoneb) 3 ml NEB Q4HRT [facility] Last Admin: 09/15/16 03:21 Dose: 3 ml Amlodipine Besylate (Norvasc) 5 mg PO DAILY [facility] Last Admin: 09/14/16 09:10 Dose: 5 mg Azithromycin (Zithromax) 250 mg PO DAILY [facility] Stop: 09/16/16 09:01 Last Admin: 09/14/16 09:10 Dose: 250 mg Citalopram Hydrobromide (Celexa) 20 mg PO DAILY [facility] Last Admin: 09/14/16 09:10 Dose: 20 mg Heparin Sodium (Porcine) (Heparin) 5,000 unit SQ Q12 [facility] Last Admin: 09/14/16 21:03 Dose: 5,000 unit Hydrochlorothiazide (Oretic) 25 mg PO DAILY [facility] Last Admin: 09/14/16 09:10 Dose: 25 mg Iron Carb/Multivit/Glenn/Folic Acid (Multivitamin W/Minerals) 1 tab PO DAILY [facility] Last Admin: 09/14/16 09:10 Dose: 1 tab Lorazepam (Ativan) 0 mg PO ONCE ONE Stop: 09/15/16 04:35 Last Admin: 09/15/16 04:41 Dose: Not Given Losartan Potassium (Cozaar) 100 mg PO DAILY [facility] Last Admin: 09/14/16 09:10 Dose: 100 mg Naloxone HCl (Narcan) 0.1 mg IV Q2MIN PRN PRN Reason: Opiate Reversal Ondansetron HCl (Zofran) 4 mg IV Q4HP PRN PRN Reason: Nausea And Vomiting Potassium/Phosphorus/Sodium (Neutra Phos) 1 packet PO TID [facility] Last Admin: 09/14/16 21:02 Dose: 1 packet [facility]) [facility] Last Admin: 09/14/16 10:36 Dose: 60 mg Thiamine HCl (Vitamin B1) 100 mg PO DAILY [facility] Last Admin: 09/14/16 09:10 Dose: 100 mg Trazodone HCl (Desyrel) 50 mg PO [facility] Last Admin: 09/14/16 21:04 Dose: Not Given Medical - PN: A/P - Time Spent With Patient Total time spent is greater than 50% in coordination of care (as documented) at patient's floor/unit and/or counseling patient: Greater than 35 minutes - Narrative A/P Narrative: A/P Acute copd exacerbation: Treat with zithromax (to end 09/16), steroids, dunebs. CXR neg for pna. Pt improving, continue same. Leukocytosis likely 2/2 demargination as pt has had no fevers. If O2 needs increase or develops fever, consider repeating CXR. Acute bronchitis: treat as above, likely the source of elevated wbc count. CXR is neg, procalcitonin is neg, clinically improving. Add Mucinex today. Acute hypoxic resp failure: 87 % on RA, treat with oxygen via NC, presently on 3 L via nasal canula. She has a concentrator at home and feels comfortable if she had to DC on temporary O2 supplementation. Walk today for ambulatory oximetry. Nocturnal dypsnea--For 2 nights now she has had episodes in the early AM hours of acute dyspnea and anxiety. Has been off her PPI recently. Will restart in case r/t reflux. Also consider EtOH WD as it is now 4-5 days since last EtOH intake. Chronic pain: Continue home meds, takes hydrocodone for chr pain. steroid induced anxiety: Will keep trazodone qhs available. hypokalemia--likely 2/2 hctz. Replaced. Will monitor hypophosphatemia--possibly r/t diuretic use and hypoK. On po replacement. cont to monitor macrocytosis/LFT elevation: chronic EtOH use. Reports 4 glasses wine daily. Check B12, folate. PRN Ativan for anxiety above and withdrawal symptoms DVT prophylaxis Hep sq Diet regular Full Code. Status: Changed to inpatient 09/14. If improving tomorrow, consider DC home +/- home oxygen. She lives alone but may be able to get a family member to stay with her.
[2016-09-15] MEDS ORDERED: LORazepam 0.5 MG TABLET PO PRN (06:46)
[2016-09-15 06:53] LABS: ALT/SGPT 80 U/l (0-40); Albumin 4.5 gm/dL (3.2-5.2); Albumin/Globulin Ratio 1.6 (1.0-2.3); Alkaline Phosphatase 103 U/L (39-117); Bilirubin,Direct < 0.2 mg/dL (0.0-0.3); Blood Urea Nitrogen 14 mg/dl (6-20); Gamma Glutamyl Transpeptidase 93 U/L (5-36); Magnesium 2.1 mg/dL (1.6-2.5); Uric Acid 3.9 mg/dL (2.5-8.0)
[2016-09-15] MEDS ORDERED: POTASSIUM CHLORIDE 20 MEQ TABLET PO ONE ×2 (07:44→12:00)
[2016-09-15] MEDS: HEPARIN 5,000 UNIT/ML VIAL SQ SCH ×2 (09:32→20:06)
[2016-09-15] MEDS: CITALOPRAM 20 MG TABLET PO SCH (09:33)
[2016-09-15] MEDS: OMEPRAZOLE 20 MG CAPSULE PO SCH (09:33)
[2016-09-15] MEDS: amLODIPine 5 MG TABLET PO SCH (09:33)
[2016-09-15] MEDS: NEUTRA PHOS 1 PACKET PO SCH ×3 (09:33→20:06)
[2016-09-15] MEDS: guaiFENesin 600 MG TAB.SR.12H PO SCH ×2 (09:33→20:06)
[2016-09-15] MEDS: HYDROCHLOROTHIAZIDE 25 MG TABLET PO SCH (09:33)
[2016-09-15] MEDS: predniSONE 20 MG TABLET PO SCH (09:33)
[2016-09-15] MEDS: LOSARTAN 50 MG TABLET PO SCH (09:34)
[2016-09-15] MEDS: THIAMINE 100 MG TABLET PO SCH (09:34)
[2016-09-15] MEDS: MULTIVIT,THER IRON,CA,FA & MIN 1 TABLET PO SCH (09:34)
[2016-09-15] MEDS: AZITHROMYCIN 250 MG TABLET PO SCH (09:34)
[2016-09-15] MEDS: traZODone HCL 50 MG TABLET PO SCH (20:06)
[2016-09-16] MEDS: IPRATROPIUM/ALBUTEROL 3 ML AMPUL.NEB NEB SCH ×6 (03:05→22:52)
[2016-09-16 05:56] LABS: ALT/SGPT 69 U/l (0-40); Albumin 4.3 gm/dL (3.2-5.2); Albumin/Globulin Ratio 1.5 (1.0-2.3); Alkaline Phosphatase 104 U/L (39-117); Bilirubin,Direct < 0.2 mg/dL (0.0-0.3); Blood Urea Nitrogen 9 mg/dl (6-20); Gamma Glutamyl Transpeptidase 89 U/L (5-36); Magnesium 2.1 mg/dL (1.6-2.5); Uric Acid 3.5 mg/dL (2.5-8.0)
[2016-09-16 06:02] LABS: Basophils # (Auto) 0 K/mcL (0.0-0.3); Basophils % (Auto) 0.1 % (0.0-2.0); Eosinophils # (Auto) 0 K/mcL (0.0-0.7); Eosinophils % (Auto) 0.3 % (0.0-7.0); Granulocytes % (Auto) 76.9 % (38.0-78.0); Lymphocytes # (Auto) 1.8 K/mcL (1.5-4.8); Lymphocytes % (Auto) 14.3 % (15.5-49.0); Mean Cell Volume 100.5 fL (80.0-100.0); Mean Corpuscular HGB Conc 34.4 g/dL (31.0-36.0); Mean Corpuscular Hemoglobin 34.5 pg (26.0-34.0); Monocytes # (Auto) 1.1 K/mcL (0.1-0.9); Monocytes % (Auto) 8.4 % (1.0-12.0); Platelet Count 153 K/mcL (140-440); RBC 4.37 M/mcL (4.00-5.20); Red Cell Distribution Width 12.6 % (11.5-14.5)
[2016-09-16] MEDS: OMEPRAZOLE 20 MG CAPSULE PO SCH (07:18)
[2016-09-16] MEDS: amLODIPine 5 MG TABLET PO SCH (08:00)
[2016-09-16] MEDS: predniSONE 20 MG TABLET PO SCH (08:00)
[2016-09-16] MEDS: CITALOPRAM 20 MG TABLET PO SCH (08:00)
[2016-09-16] MEDS: HYDROCHLOROTHIAZIDE 25 MG TABLET PO SCH (08:00)
[2016-09-16] MEDS: THIAMINE 100 MG TABLET PO SCH (08:00)
[2016-09-16] MEDS: MULTIVIT,THER IRON,CA,FA & MIN 1 TABLET PO SCH (08:00)
[2016-09-16] MEDS ORDERED: POTASSIUM CHLORIDE 20 MEQ TABLET PO SCH (08:00)
[2016-09-16] MEDS: NEUTRA PHOS 1 PACKET PO SCH ×3 (08:01→21:05)
[2016-09-16] MEDS: HYDROcodone/APAP 5/325MG TABLET PO PRN ×4 (08:01→21:06)
[2016-09-16] MEDS: LOSARTAN 50 MG TABLET PO SCH (08:01)
[2016-09-16] MEDS: guaiFENesin 600 MG TAB.SR.12H PO SCH ×2 (08:02→21:07)
[2016-09-16] MEDS ORDERED: cloNIDine HCL 0.1 MG TABLET PO PRN ×2 (08:02→09:28)
[2016-09-16] MEDS: HEPARIN 5,000 UNIT/ML VIAL SQ SCH ×2 (08:02→21:07)
[2016-09-16] MEDS ORDERED: AMOXICILLIN 250 MG CAPSULE PO SCH (09:00)
[2016-09-16] MEDS ORDERED: ACETAMINOPHEN 325 MG TABLET PO PRN (09:28)
[2016-09-16] MEDS ORDERED: LORazepam 0.5 MG TABLET PO PRN (09:28)
[2016-09-16] MEDS ORDERED: ONDANSETRON 4 MG/2 ML VIAL IV PRN (09:28)
[2016-09-16] MEDS ORDERED: NALOXONE HCL 0.4 MG/ML VIAL IV PRN (09:28)
--- NOTE | 2016-09-16 10:47 | Internal Med Progress Note ---
Medical - PN: Subj Patient information: Note initiated : 09/16/16 at 10:40 am Service Date, if different from initiated Date: [] Patient: Destiny Begum a 61 y/o F admitted on 09/14/16 for Shortness of Breath/ COPD Exacerbation. Chief Complaint: [] Interval history: Ms. Begum is a 61 year old Female with h/o copd who presents to the ER with complains of shortness of breath and cough which has been going on and off for the last 2 months. For 2 days prior to admission, the patient's symptoms worsened considerably and therefore she presented to the ED. She has been having cough, going on for 2 months associated with shortness of breath. She has a history of COPD. She has tried antibiotics for same with partial relief. Her shortness of breath is worse with exertion and better with rest, associated with chest tightness, cough, greenish phlegm, no hemoptysis, no chest pain. Patient therefore presented to the ED. She notes that in the past she was having similar symptoms at which time she was admitted to the ICU for COPD exacerbation. In the emergency room the patient underwent labs and investigations which revealed an elevated WBC count, a negative chest x-ray The patient has no urinary symptoms, the patient was given duo nebs, terbutaline,IV steroids, and azithromycin, she was hypoxic at 87% on room air. She was admitted to the hospital with a diagnosis of acute COPD exacerbation. September 13: patient seen examined, no acute overnight issues, pt notes she had some anxiety at night, with the use of steroids, so she could not sleep well, would like something to calm her down, will use trazodone 50 qhs while she is inpatient. Her shortness of breath,cough is improving. WBC trending down, procalcitonin is neg. Plan to continue present treatment. September 14: She was doing well until early this AM when she had acute SOB while walking back from bathroom. Breathing much easier after coughing up lots of crandall sputum. She remains hoarse. She didn't try the trazodone last night because she is afraid she would be too sleepy to know if she had breathing trouble. Labs yesterday showed hypoK and hypoPhos. Both were replaced and are improved today. WBC is back up to 18. LFTs are mildly elevated. Worked with PT yesterday and mobilized well but had decreased endurance d/t SOB. She lost her IV site overnight and has a hematoma on the back of her hand. Changed to prednisone. September 15: Again had episode of a/c SOB in early AM hours while walking back from bathroom. RN called me and Ativan was given with good effect. WBC again trending down. No fevers. She was previously on Prilosec but hasn't been taking ; her nocturnal sx may be related to reflux but it has been 4-5 days since her last drink and I d/w pt whether EtOH WD may be causing sx. Desaturated to 87% on 3L today while ambulating. Breathing is much better after she coughs up phlegm but she has a difficult time since phlegm is thick. September 16, Pt seen examined, no acute issues, she is very tired today, still on oxygen, sob on minimal activity and still has productive sputum. She has been treated by Zithromax, sputum cx was positive for H.influenza sensitive to penicillin, will add to her regime. Otherwise she feels she is somewhat better than admission, but still not back to baseline. will continue with aggressive chest PT> Pertinent ROS: Denies headache, dizziness Denies chest pain, palpitations Present cough and shortness of breath Denies abdominal pain, nausea or vomiting. - Constitutional Vitals: Vital Signs Temp Pulse Resp BP Pulse Ox 98.6 F 96 H 16 161/102 92 09/16/16 07:23 09/16/16 07:30 09/16/16 07:30 09/16/16 07:23 09/16/16 08:25 Period Temp Pulse Resp BP Sys/Denney Pulse Ox Last 24 Hr 98.2 F-98.9 F 86-96 16-22 145-171/73-102 91-96 Intake and Output 09/15/16 09/16/16 09/16/16 21:59 05:59 13:59 Intake Total 1140 / 1140 800 / 800 Balance 1140 / 1140 800 / 800 Weight 181 lb Intake & Output: Intake & Output 09/15/16 09/16/16 09/16/16 21:59 05:59 13:59 Intake Total 1140 / 1140 800 / 800 Balance 1140 / 1140 800 / 800 Weight 181 lb Intake: Oral 1140 / 1140 800 / 800 Other: Meal Dinner Percent of Meal Consumed 100% Feeding Ability Independent # Voids 5 3 Exam: Constitutional; Afebrile, cooperative, alert, not in distress. Eyes- No icterus, , No periorbital swelling Ears- Ext ear normal, hearing normal to conversation. Neck- Midline trachea, supple Respiratory system: Air Entry equal on both sides, no wheezing today, just proloned exp phase and poor air entry. CVS- Rate rhythm regular, S1,S2 heard, no gallop, no rub. Abdomen- Soft nontender abdomen, no organomegaly, no tenderness, no guarding or rigidity, [place]- AOOx3, moving all extremities, no gross focal deficit noted. Medical - PN: Obj Da - Labs CBC & Chem 7: 09/16/16 04:08 09/16/16 04:08 Labs: Abnormal Lab Results 09/16/16 09/16/16 09/15/16 04:08 04:08 04:20 WBC 12.7 H Hgb 15.1 H MCV 100.5 H MCH 34.5 H Gran % Lymph % (Auto) 14.3 L Gran # 9.8 H [place] # (Auto) 1.1 H Potassium 3.0 L Carbon Dioxide 33 H GGT 89 H 93 H AST 63 H ALT 69 H 80 H Lactate Dehydrogenase 265 H 295 H 09/15/16 04:20 WBC 16.9 H Hgb MCV 104.2 H MCH 34.6 H Gran % 80.5 H Lymph % (Auto) 11.4 L Gran # 13.6 H [place] # (Auto) 1.4 H Potassium Carbon Dioxide GGT AST ALT Lactate Dehydrogenase Meds: Medications Acetaminophen (Tylenol) 650 mg PO Q6HP PRN PRN Reason: PAIN/FEVER > 101 Hydrocodone Bitart/Acetaminophen ([place] 5/325mg) 1 tab PO Q4HP PRN PRN Reason: Pain Albuterol/Ipratropium (Duoneb) 3 ml NEB Q4HRT [facility] Amlodipine Besylate (Norvasc) 5 mg PO DAILY [facility] Amoxicillin (Amoxicillin) 500 mg PO TID [facility] Citalopram Hydrobromide (Celexa) 20 mg PO DAILY [facility] Clonidine HCl (Catapres) 0.1 mg PO Q4HP PRN PRN Reason: Hypertension Guaifenesin (Mucinex) 600 mg PO BID [facility] Heparin Sodium (Porcine) (Heparin) 5,000 unit SQ Q12 [facility] Hydrochlorothiazide (Oretic) 25 mg PO DAILY [facility] Iron Carb/Multivit/Stigler/Folic Acid (Multivitamin W/Minerals) 1 tab PO DAILY [facility] Lorazepam (Ativan) 0.5 mg PO Q6HP PRN PRN Reason: Alcohol Withdrawal Losartan Potassium (Cozaar) 100 mg PO DAILY [facility] Naloxone HCl (Narcan) 0.1 mg IV Q2MIN PRN PRN Reason: Opiate Reversal Omeprazole (Prilosec) 40 mg PO ACB [facility] Ondansetron HCl (Zofran) 4 mg IV Q4HP PRN PRN Reason: Nausea And Vomiting Potassium Chloride (Kdur) [facility] Potassium/Phosphorus/Sodium (Neutra Phos) 1 packet PO TID [facility] Prednisone (Prednisone) 60 mg PO QAC [facility] Thiamine HCl (Vitamin B1) 100 mg PO DAILY [facility] Trazodone HCl (Desyrel) 50 mg PO HS [facility] Medical - PN: A/P - Time Spent With Patient Total time spent is greater than 50% in coordination of care (as documented) at patient's floor/unit and/or counseling patient: - Narrative A/P Narrative: A/P Acute copd exacerbation: Treat with zithromax (to end 09/16), started on amox today given pt still symptomatic and sputum culture positive for h influenzae. Continue steroids, dunebs. CXR neg for pna. continued o2 need Acute bronchitis: treat as above, likely the source of elevated wbc count. CXR is neg, procalcitonin is neg, clinically improving. on mucinex, added amoxicillin Acute hypoxic resp failure: 87 % on RA, treat with oxygen via NC, presently on 3 L via nasal canula.may need to go home with oxygen. Nocturnal dypsnea and cough, started on PPI Chronic pain: Continue home meds, takes hydrocodone for chr pain. steroid induced anxiety: Will keep trazodone qhs available. hypokalemia--likely 2/2 hctz. Replaced. Will monitor hypophosphatemia--possibly r/t diuretic use and hypoK. On po replacement. cont to monitor macrocytosis/LFT elevation: chronic EtOH use. Reports 4 glasses wine daily. Check B12, folate. PRN Ativan for anxiety above and withdrawal symptoms DVT prophylaxis Hep sq Diet regular Full Code. r.
[2016-09-16] MEDS: AMOXICILLIN 250 MG CAPSULE PO SCH ×2 (15:27→21:05)
[2016-09-16] MEDS ORDERED: traZODone HCL 50 MG TABLET PO SCH (21:00)
[2016-09-17] MEDS: IPRATROPIUM/ALBUTEROL 3 ML AMPUL.NEB NEB SCH ×2 (03:00→07:32)
[2016-09-17] MEDS: HYDROcodone/APAP 5/325MG TABLET PO PRN ×2 (03:01→09:54)
[2016-09-17 07:06] LABS: Basophils # (Auto) 0 K/mcL (0.0-0.3); Basophils % (Auto) 0.2 % (0.0-2.0); Eosinophils # (Auto) 0.1 K/mcL (0.0-0.7); Eosinophils % (Auto) 0.5 % (0.0-7.0); Granulocytes % (Auto) 74.4 % (38.0-78.0); Lymphocytes % (Auto) 16.5 % (15.5-49.0); Mean Cell Volume 104.2 fL (80.0-100.0); Mean Corpuscular HGB Conc 33.1 g/dL (31.0-36.0); Mean Corpuscular Hemoglobin 34.5 pg (26.0-34.0); Monocytes % (Auto) 8.4 % (1.0-12.0); Platelet Count 180 K/mcL (140-440); RBC 4.37 M/mcL (4.00-5.20); Red Cell Distribution Width 13.5 % (11.5-14.5)
[2016-09-17 07:28] LABS: ALT/SGPT 51 U/l (0-40); Albumin 3.9 gm/dL (3.2-5.2); Albumin/Globulin Ratio 1.4 (1.0-2.3); Alkaline Phosphatase 108 U/L (39-117); Bilirubin,Direct < 0.2 mg/dL (0.0-0.3); Blood Urea Nitrogen 14 mg/dl (6-20); Gamma Glutamyl Transpeptidase 77 U/L (5-36); Uric Acid 3.8 mg/dL (2.5-8.0)
[2016-09-17] MEDS ORDERED: OMEPRAZOLE 20 MG CAPSULE PO SCH (07:30)
[2016-09-17] MEDS ORDERED: predniSONE 20 MG TABLET PO SCH (08:00)
[2016-09-17] MEDS ORDERED: POTASSIUM CHLORIDE 20 MEQ TABLET PO SCH (08:00)
[2016-09-17] MEDS ORDERED: MULTIVIT,THER IRON,CA,FA & MIN 1 TABLET PO SCH (09:00)
[2016-09-17] MEDS ORDERED: HYDROCHLOROTHIAZIDE 25 MG TABLET PO SCH (09:00)
[2016-09-17] MEDS ORDERED: amLODIPine 5 MG TABLET PO SCH (09:00)
[2016-09-17] MEDS ORDERED: CITALOPRAM 20 MG TABLET PO SCH (09:00)
[2016-09-17] MEDS ORDERED: THIAMINE 100 MG TABLET PO SCH (09:00)
[2016-09-17] MEDS ORDERED: LOSARTAN 50 MG TABLET PO SCH (09:00)
--- NOTE | 2016-09-17 09:30 | Discharge Summary ---
Medical - DS: Prov Patient information: Note initiated : 09/17/16 at 9:26 am Service Date, if different from initiated Date: [] Patient: Destiny Begum 61 y/o F admitted on 09/14/16 for Shortness of Breath/ COPD Exacerbation. Chief Complaint: [] Date of admission: 09/14/16 09:49 Discharge date: 09/17/16 Primary care physician: Antoine Victoria Admitting clinician: Sander Johnston Discharging clinician: Sander Johnston Medical - DS: Meds - Discharge Medications Prescriptions: Amoxicillin 500 mg PO Q8H #18 capsule predniSONE [Prednisone] 10 mg [facility] [place] #[facility] tablet Active and Home Medications: Home Medications Albuterol Sulfate [Ventolin] 2 puff INH Q4HP PRN 09/12/16 [History Confirmed Last Taken 09/12/16 08:00] Citalopram [Celexa] 20 mg PO DAILY 09/12/16 [History Confirmed 09/12/16 Last Taken 09/12/16 08:00] HYDROcodone/APAP 5/325MG [[place] 5/325Mg] 1 tab PO Q6HP PRN 09/12/16 [History Confirmed 09/12/16 Last Taken 09/12/16 08:00] Hydrochlorothiazide [[place]] 25 mg PO DAILY 09/12/16 [History Confirmed Last Taken 09/12/16 08:00] Ipratropium/Albuterol Sulfate [Combivent] 1 puff INH Q4H PRN 09/12/16 [History Confirmed 09/12/16 Last Taken 09/12/16 07:00] Losartan [Cozaar] 100 mg PO DAILY 09/12/16 [History Confirmed 09/12/16 Last Taken 09/12/16 08:00] amLODIPine [Norvasc] 5 mg PO ONCE 09/12/16 [History Confirmed 09/12/16 Last Taken 09/12/16 08:00] Medical - DS: Hosp Hospital course: Mr. Begum is a 61 year old Female ith history of chronic obstructive pulmonary disease using oxygen at night who presented to the ED with complaints of cough, which has been going on and off for the last 2 months,which had worsened over a period of 2 days. She was admitted to the hospital with a diagnosis of COPD exacerbation. She also had acute hypoxic respiratory failure with increased oxygen needs. COPD exacerbation-The patient was treated with steroids, Zithromax, albuterol and ipratropium nebulizers, the patient responded to the treatment. However, she still had significant cough with brownish sputum. The sputum culture was positive for H influenza bacteria. Which was sensitive toampicillin. The patient was started on amoxicillin 500 mg every 8 hours. The patient reported improvement with this new antibiotic in 1 day. She will be discharged home with a taper of prednisone and she will complete a course of amoxicillin. She has been advised to use her inhalerevery 4 hours until her symptoms improve. Acute hypoxic respiratory failure-the patient needed increased oxygen while she was in the hospital she continued to need oxygen throughout the course. Despite improvement in her respiratory status, she has been discharged home on 3 L nasal cannula, this is likely a short-term need for oxygen, she will need an evaluation by her primary care physician once her COPD is more stable. for Continued use of oxygen. She has been advised to follow up with the PCP. lcohol use, patient has been having ncreased use of alcohol. Recently educated to cut back, treated with thiamine, she did have some anxiety at night which was either due to mild alcohol withdrawal or due to use of steroids. Patient did not go into DT. Ex The rest of stay in the hospital was uneventful. No changes in the home medication list has been done, we have added oxygen short-term use of steroids and short-term use of antibiotics. Discharge diagnosis: copd exacerbation. - Time Spent with Patient Total time spent providing and/or coordinating discharge services: Less than 30 minutes Medical - DS: Exam - Constitutional Vitals: Vital Signs Temp Pulse Pulse Resp BP Pulse Ox 09/17/16 08:02 103 H 18 09/17/16 07:32 98.0 F 22 162/92 94 09/17/16 07:30 100 H 18 09/17/16 03:22 98.4 F 99 H 14 145/86 91 09/16/16 23:45 97.4 F 91 H 14 138/71 96 09/16/16 22:56 87 20 09/16/16 19:53 98.4 F 97 H 14 136/81 91 09/16/16 19:07 98 H 16 09/16/16 19:01 98 09/16/16 19:00 98 09/16/16 16:00 98.1 F 22 155/76 94 09/16/16 15:54 99 H 20 09/16/16 15:47 95 09/16/16 12:10 114 H 20 09/16/16 12:04 92 09/16/16 12:03 92 09/16/16 12:00 98.4 F 24 H 159/87 93 Intake and Output 09/16/16 09/17/16 09/17/16 21:59 05:59 13:59 Intake Total 600 / 600 240 / 240 Balance 600 / 600 240 / 240 Intake: Oral 600 / 600 240 / 240 Other: Meal Breakfast Percent of Meal Consumed 100% # Voids 2 1 Weight 181 lb 8 oz Additional comments: Constitutional; Afebrile, cooperative, alert, not in distress. Eyes- No icterus, , No periorbital swelling Ears- Ext ear normal, hearing normal to conversation. Neck- Midline trachea, supple Respiratory system: Air Entry equal on both sides, No crackles or wheezing, no rhonchi. CVS- Rate rhythm regular, S1,S2 heard, no gallop, no rub. Abdomen- Soft nontender abdomen, no organomegaly, no tenderness, no guarding or rigidity, [employer]- AOOx3, moving all extremities, no gross focal deficit noted. Medical - DS: Data Labs on day of discharge: Labs from last 24 hours 09/17/16 09/17/16 03:45 03:45 WBC 12.4 H RBC 4.37 Hgb 15.1 H Hct 45.5 MCV 104.2 H MCH 34.5 H MCHC 33.1 RDW 13.5 Plt Count 180 MPV 9.0 Gran % 74.4 Lymph % (Auto) 16.5 [place] % (Auto) 8.4 Eos % (Auto) 0.5 Baso % (Auto) 0.2 Gran # 9.2 H Lymph # (Auto) 2.0 [place] # (Auto) 1.0 H Eos # (Auto) 0.1 Baso # (Auto) 0 Sodium 141 Potassium 3.3 Chloride 95 L Carbon Dioxide 31 H Anion Gap 15.0 BUN 14 Creatinine 0.7 GFR Calculation 95 Glucose 80 Uric Acid 3.8 Calcium 9.5 Phosphorus 3.6 Magnesium 2.0 Total Bilirubin 0.3 Direct Bilirubin < 0.2 GGT 77 H AST 22 ALT 51 H Alkaline Phosphatase 108 Lactate Dehydrogenase 337 H Total Protein 6.6 Albumin 3.9 Globulin 2.7 Albumin/Globulin Ratio 1.4 Triglycerides 87 Medical - DS: A/P - Patient/Caregiver Discharge Instructions Activity: wear oxygen at all times, wear oxygen at night Diet: Regular Diet Additional Instructions: Go to ER if worsening condition, fever, chills or any other concerning symptom. Prescriptions: Amoxicillin 500 mg PO Q8H #18 capsule predniSONE [Prednisone] 10 mg PO [facility] #24 tablet - Follow up Plan Follow up with: Antoine Victoria PA-C [Primary Care Provider] - 09/19/16 9:00 am Disposition: Home, Self-Care Prognosis: Fair Rehab Potential: Fair I certify that the patient requires SNF services: No Overall status at discharge: patient is progressing back to baseline
[2016-09-17] MEDS: AMOXICILLIN 250 MG CAPSULE PO SCH (09:32)
[2016-09-17] MEDS: NEUTRA PHOS 1 PACKET PO SCH (09:33)
[2016-09-17] MEDS: guaiFENesin 600 MG TAB.SR.12H PO SCH (09:34)
[2016-09-17] MEDS: HEPARIN 5,000 UNIT/ML VIAL SQ SCH (09:35)
== END 2016-09-17 10:50 | disposition home or self-care (01) | DRG 190 ==
LOC: ED 10:20 → ICU 10:20
PROVIDERS: ADMIT Internal Medicine; ATTEND Internal Medicine